=== PATIENT | male | born 1950 | race Caucasian/White ===

== ENCOUNTER → 2018-06-01 09:17 | Outpatient (CLI) | payer MEDICARE, SELFPAY ==
[2018-06-01 11:19] LABS: Add Manual Diff / Slide Review NO; Basophils Percent Auto 0.8 % (0-2); Eosinophils Percent Auto 4.1 % (2-4); Hematocrit 42.4 % (41-53); Lymphocytes Percent Auto 34.1 % (25-40); Mean Corpuscular HGB Conc 35.4 % (30-36); Mean Corpuscular Hemoglobin 32.3 PG (26-34); Mean Corpuscular Volume 91.1 fL (80-100); Monocytes Percent Auto 7.8 % (3-14); Neutrophils Absolute Auto 2800 /uL (3000-5900); Neutrophils Percent Auto 53.2 % (50-75); Platelet Count 177 X10^3/uL (150-400); Red Blood Cell Count 4.66 X10^6/uL (4.5-5.9); Red Cell Distribution Width 13.2 % (11.6-14.8); White Blood Cell Count 5.3 X10^3/uL (4.5-11.0)
[2018-06-01 11:30] LABS: Alanine Aminotransferase 27 IU/L (21-72); Albumin 4.4 g/dL (3.5-5.0); Albumin Globulin Ratio 1.5 (1.0-2.8); Alkaline Phosphatase 37 U/L (38-126); Aspartate Aminotransferase 26 IU/L (17-59); BUN Creatinine Ratio 17.9 (6-22); Blood Urea Nitrogen 25 mg/dL (9-20); Calcium 9.6 mg/dL (8.4-10.2); Carbon Dioxide 32 mmol/L (22-32); Chloride 102 mmol/L (98-107); Cholesterol 227 mg/dL (140-199); Estimated Glomerular Filt Rate 50.2 mL/min (>60); Glucose 96 mg/dL (80-110); HDL Cholesterol 59 mg/dL (40-60); HEMOLYSIS < 15 (0-50); LDL Cholesterol Calculated 144 mg/dL (<100); Potassium 3.7 mmol/L (3.4-5.1); Sodium 143 mmol/L (137-145); Total Protein 7.4 g/dL (6.3-8.2); Triglycerides 118 mg/dL (35-150)
[2018-06-01 11:53] LABS: Prostate Specific Antigen 0.746 ng/mL (0.10-4.00)
[2018-06-01 12:04] LABS: Vitamin D 25 Hydroxy (D3) 35.8 ng/mL (30.0-100.0)
[2018-06-01 12:11] LABS: Vitamin B12 475 pg/mL (239-931)
[2018-06-01 12:21] LABS: TSH w/ Reflex to FT4 0.73 uIU/mL (0.47-4.68)
== END ==
PROVIDERS: PCP Family Medicine; Visit Provider Family Medicine
DX: I10 Essential (primary) hypertension (principal); R53.82 Chronic fatigue, unspecified
CPT/HCPCS: 36415; 80053; 80061; 82306; 82607; 84153; 84403; 84443; 85025

== ENCOUNTER 2018-06-03 10:47 | Emergency (ER) | payer MEDICARE, SELFPAY ==
[2018-06-03 10:55] VITALS: BP 177/88; PULSE 67; RESP 15; TEMP 37; O2SAT 100; BMI 31.1
[2018-06-03 11:00] VITALS: BP 151/80; PULSE 59; RESP 13; O2SAT 100
--- NOTE | 2018-06-03 11:14 | DI.RAD.S_ITS ---
PROCEDURE: XR RIBS LT MIN 3V W CXR1V INDICATIONS: left rib pain TECHNIQUE: 2 views of the left ribs were acquired, along with a single view chest. COMPARISON: None. FINDINGS: Surgical changes and devices: Surgical clips project over the left upper quadrant of the abdomen.. Bones and chest wall: There is a radiopaque BB overlying the left lower lateral chest. Adjacent the BB-marker there is a possible minimally displaced fracture of the anterolateral left eighth rib. No suspicious bony lesions. Overlying soft tissues appear unremarkable. Lungs and pleura: No pleural effusions or pneumothorax. Lungs appear clear. Mediastinum: Mediastinal contours appear normal. Heart size is normal. IMPRESSION: Possible minimally displaced fracture of the anterolateral left eighth rib near the radiopaque BB marker at site of patient's indicated pain. Clinical correlation recommended. Dictated by: Christopher Broussard M.D. on 06/03/2018 at 12:19 Approved by: Christopher Broussadr M.D. on 06/03/2018 at 12:23
--- NOTE | 2018-06-03 11:21 | ED_ITS ---
HPI - Chest Pain General Chief Complaint: Chest Pain Stated Complaint: LEFT SIDED SHARP PAIN Time Seen by Provider: 06/03/18 11:00 Source: patient Mode of arrival: ambulatory Limitations: no limitations History of Present Illness HPI narrative: Patient is a 68-year-old male presents with left-sided chest pain. He said he has been point chest pain ongoing for 1 month. Last night it woke him from his sleep and he was not able to get comfortable. It sometimes hurts of when he takes a breath but not when he moved his arm. It is nonradiating. He does not remember falling or injuring it. He denies any shortness of breath or fever. He can pinpoint it MD complaint: chest pain Related Data Previous Rx's Medication Instructions Recorded fluticasone 1 spray INTRANASAL QDAY #1 bot 03/05/18 acyclovir 800 mg tablet 800 mg PO DAILY #90 tab 05/16/18 hydrochlorothiazide 25 mg tablet 25 mg PO QDAY #90 tab 05/16/18 lisinopril 20 mg tablet 20 mg PO QDAY #90 tab 05/16/18 omeprazole 40 mg capsule,delayed 40 mg PO QDAY #90 cap 05/16/18 release hydrocodone-acetaminophen [[place]] 1 tab PO Q4-6H PRN #10 tab 06/03/18 Allergies Allergy/AdvReac Type Severity Reaction Status Date / Time latex [LATEX] Allergy Mild Verified 05/16/18 14:46 iodine Allergy Unknown Verified 05/16/18 14:46 morphine Allergy Unknown Verified 05/16/18 14:46 shellfish derived Allergy Unknown Verified 05/16/18 14:46 Review of Systems Review of Systems GENERAL: Denies chills, fatigue, malaise, fever, sweats, travel HEENT: Denies sinus pain, ear pain, sore throat, difficulty swallowing, neck pain RESPIRATORY: Denies dyspnea, cough, wheezing, hemoptysis, sputum. CARDIOVASCULAR: See HPI GASTROINTESTINAL: Denies nausea, vomiting, abdominal pain, diarrhea, constipation, melena. : Denies dysuria, frequency, incontinence, hematuria, urinary retention, flank pain. MUSCULOSKELETAL: Denies weakness, joint pain, or bony pain SKIN: No rash, no erythema, no pruritus NEUROLOGIC: Denies weakness, dizziness, headache, numbness, change in speech, confusion PSYCHIATRIC: No concerning psychosocial issues. 12 point review of systems is negative except for those stated above and HPI PFSH Medical History Insomnia, persistent (Chronic) Obstructive sleep apnea of adult (Chronic) Snoring (Chronic) GERD (gastroesophageal reflux disease) (Chronic) Hypertension (Chronic) Surgical History History of Matthew fundoplication (Resolved) Social History Smoking Status: Unknown if ever smoked Exam Initial Vital Signs Initial Vital Signs: Vital Signs Temperature 98.6 F 06/03/18 10:55 Pulse Rate 67 06/03/18 10:55 Respiratory Rate 15 06/03/18 10:55 Blood Pressure 177/88 H 06/03/18 10:55 Pulse Oximetry 100 06/03/18 10:55 GENERAL: Well-appearing, well-nourished and in no acute distress. HEENT: Head atraumatic,EOMI, pupils reactive, face symmetric CARDIOVASCULAR: Regular rate and rhythm without murmurs, rubs or gallops. Patient is reproducible between ribs 7 and 8 anteriorly. Pinpoint. RESPIRATORY: Breath sounds equal bilaterally, no wheezes rales or rhonchi. ABDOMEN: Soft, nontender. Normoactive bowel sounds all 4 quadrants. No guarding or rebound. : No CVA tenderness EXTREMITIES: Normal range of motion, no clubbing or edema. Neurovascularly intact NEUROLOGICAL: Alert and oriented x4.Normal gait and speech. Cranial nerves II through XII grossly intact. SKIN: Warm, dry, no laceration, no petechiae, no rashes or lesions. Course Orders Ordered: ED Orders 06/03/18 10:56 EKG-12 Lead Urgent 06/03/18 11:14 XR ribs LT min 3V w CXR1V Stat 06/03/18 11:30 Complete Blood Count AUTO DIFF Stat Comprehensive Metabolic Panel Stat Lipase Stat Troponin & CK Cardiac Panel Stat Discontinued Medications Ketorolac Tromethamine (Toradol) 15 mg IV NOW ONE Stop: 06/03/18 11:15 Last Admin: 06/03/18 11:52 Dose: 15 mg Vital Signs - 8 hr 06/03/18 10:55 06/03/18 11:00 06/03/18 12:00 Temperature 98.6 F Pulse Rate 67 59 L 54 L Respiratory Rate 15 13 29 H Blood Pressure 177/88 H Blood Pressure [Left Arm] 151/80 H 145/81 H Pulse Oximetry 100 100 98 06/03/18 12:53 Temperature Pulse Rate 56 L Respiratory Rate 16 Blood Pressure 162/81 H Blood Pressure [Left Arm] Pulse Oximetry 99 MDM - Chest Pain Lab Data Attestation: I reviewed the patient's lab results. Result diagrams: 06/03/18 11:30 06/03/18 11:30 Lab Results 06/03/18 06/03/18 Range/Units 11:30 11:30 WBC 6.3 (4.5-11.0) X10^3/uL RBC 4.63 (4.5-5.9) X10^6/uL Hgb 14.7 (13.5-17.5) g/dL Hct 42.1 (41-53) % MCV 90.9 (80-100) fL MCH 31.8 (26-34) PG MCHC 35.0 (30-36) % RDW 13.0 (11.6-14.8) % Plt Count 180 (150-400) X10^3/uL Neut % (Auto) 54.3 (50-75) % Lymph % (Auto) 32.5 (25-40) % [place] % (Auto) 8.3 (3-14) % Eos % (Auto) 3.9 (2-4) % Baso % (Auto) 1.0 (0-2) % Neut # (Auto) 3400 (3385-5861) /uL Sodium 142 (137-145) mmol/L Potassium 3.7 (3.4-5.1) mmol/L Chloride 104 (98-107) mmol/L Carbon Dioxide 28 (22-32) mmol/L BUN 25 H (9-20) mg/dL Creatinine 1.20 (0.66-1.25) mg/dL Estimated GFR > 60.0 (>60) mL/min BUN/Creatinine Ratio 20.8 (6-22) Glucose 95 (80-110) mg/dL Calcium 9.6 (8.4-10.2) mg/dL Total Bilirubin 0.9 (0.2-1.3) mg/dL AST 22 (17-59) IU/L ALT 29 (21-72) IU/L Alkaline Phosphatase 38 (38-126) U/L Total Creatine Kinase 69 (55-170) U/L CK-MB (CK-2) TNP CK-MB (CK-2) Rel Index TNP Troponin I < 0.012 (0.01-0.034) ng/mL Total Protein 7.0 (6.3-8.2) g/dL Albumin 4.2 (3.5-5.0) g/dL Globulin 2.8 (1.7-4.1) g/dL Albumin/Globulin Ratio 1.5 (1.0-2.8) Lipase 57 (23-300) U/L Imaging Data rib XR left: Radiologist's impression: PROCEDURE: XR RIBS LT MIN 3V W CXR1V INDICATIONS: left rib pain TECHNIQUE: 2 views of the left ribs were acquired, along with a single view chest. COMPARISON: None. FINDINGS: Surgical changes and devices: Surgical clips project over the left upper quadrant of the abdomen.. Bones and chest wall: There is a radiopaque BB overlying the left lower lateral chest. Adjacent the BB-marker there is a possible minimally displaced fracture of the anterolateral left eighth rib. No suspicious bony lesions. Overlying soft tissues appear unremarkable. Lungs and pleura: No pleural effusions or pneumothorax. Lungs appear clear. Mediastinum: Mediastinal contours appear normal. Heart size is normal. IMPRESSION: Possible minimally displaced fracture of the anterolateral left eighth rib near the radiopaque BB marker at site of patient's indicated pain. Clinical correlation recommended. Dictated by: Christopher Broussard M.D. on 06/03/2018 at 12:19 ECG Data Attestation: I personally reviewed and interpreted this ECG as follows: Interpretation: Normal sinus rhythm rate [address] changes no T-wave inversions similar to previous EKG in 2015. MDM Narrative Medical decision making narrative: Blood work within normal limits on signs and symptoms consistent with rib fracture. At this time pain control only. Discharge Plan Departure Patient Disposition: Home Clinical Impression: Rib fracture Discharge Date/Time: 06/03/18 12:54 Interventions: ED Discharge Assessment Last Done: 06/03/18 12:53 Instructions: Rib Fracture Activity Restrictions/Additional Instructions: *You have been diagnosed with rib fracture *What to do: Blood work EKG and x-ray within normal limits *Continue to take medications as directed Recommend ibuprofen 600 mg every 6-8 hours if needed for pain or inflammation [place] 1 tablet every 4 hr or 2 tablets every 6 hr *Follow up with your primary care provider in 2-3 days *Return to ER if you should have increasing pain shortness of breath heart palpitations or any new, worsening or concerning symptoms CONTROLLED SUBSTANCE DISCHARGE (Narcotoic/benzodiazepine/Flexeril/Phenergan) 1. You have been prescribed narcotic medications, it does have acetaminophen/ Tylenol/paracetamol in it so do not take extra Tylenol or Tylenol containing products 2. Please understand that we cannot provide further refills of narcotics, benzodiazepines or controlled substances through the ED and her pain management will need to be through your provider. 3. While on these medications you cannot drive or operate heavy machinery. 4. You cannot sign legal documents or perform any duties such as this. 5. As long as you're taking opiate pain medications he should also be taking a stool softener such as Colace, Dulcolax, MiraLAX or prune juice, to help avoid constipation. Prescriptions: New hydrocodone-acetaminophen [[place]] 5-325 mg tablet 1 tab PO Q4-6H PRN (Reason: pain (scale score 4-6)) Qty: 10 RF: 0 No Action fluticasone 50 mcg/actuation spray,suspension 1 spray Intranasal QDAY Qty: 1 RF: 0 lisinopril 20 mg tablet 20 mg PO QDAY Qty: 90 RF: 3 hydrochlorothiazide 25 mg tablet 25 mg PO QDAY Qty: 90 RF: 3 acyclovir 800 mg tablet 800 mg PO DAILY Qty: 90 RF: 2 omeprazole 40 mg capsule,delayed release(DR/EC) 40 mg PO QDAY Qty: 90 RF: 3 Referrals: Micha Sanford MD [Primary Care Provider] -
[2018-06-03 11:50] LABS: Add Manual Diff / Slide Review NO; Eosinophils Percent Auto 3.9 % (2-4); Hematocrit 42.1 % (41-53); Hemoglobin 14.7 g/dL (13.5-17.5); Lymphocytes Percent Auto 32.5 % (25-40); Mean Corpuscular Hemoglobin 31.8 PG (26-34); Mean Corpuscular Volume 90.9 fL (80-100); Monocytes Percent Auto 8.3 % (3-14); Neutrophils Absolute Auto 3400 /uL (3000-5900); Neutrophils Percent Auto 54.3 % (50-75); Platelet Count 180 X10^3/uL (150-400); Red Blood Cell Count 4.63 X10^6/uL (4.5-5.9); White Blood Cell Count 6.3 X10^3/uL (4.5-11.0)
[2018-06-03] MEDS: KETOROLAC 60 MG/2 ML VIAL 15 MG IV (11:52)
[2018-06-03 12:00] VITALS: BP 145/81; PULSE 54; RESP 29; O2SAT 98
[2018-06-03 12:10] LABS: Alanine Aminotransferase 29 IU/L (21-72); Albumin 4.2 g/dL (3.5-5.0); Albumin Globulin Ratio 1.5 (1.0-2.8); Alkaline Phosphatase 38 U/L (38-126); Aspartate Aminotransferase 22 IU/L (17-59); BUN Creatinine Ratio 20.8 (6-22); Bilirubin Total 0.9 mg/dL (0.2-1.3); Blood Urea Nitrogen 25 mg/dL (9-20); Calcium 9.6 mg/dL (8.4-10.2); Carbon Dioxide 28 mmol/L (22-32); Chloride 104 mmol/L (98-107); Creatine Kinase 69 U/L (55-170); Estimated Glomerular Filt Rate > 60.0 mL/min (>60); Globulin 2.8 g/dL (1.7-4.1); Glucose 95 mg/dL (80-110); HEMOLYSIS < 15 (0-50); Lipase 57 U/L (23-300); Potassium 3.7 mmol/L (3.4-5.1); Sodium 142 mmol/L (137-145)
[2018-06-03 12:22] LABS: Troponin I < 0.012 ng/mL (0.01-0.034)
[2018-06-03 12:53] VITALS: BP 162/81; PULSE 56; RESP 16; O2SAT 99
== END 2018-06-03 12:54 | disposition home or self-care (01) ==
PROVIDERS: Emergency Provider Emergency Medicine; PCP Family Medicine
DX: S22.32XA Fracture of one rib, left side, initial encounter for closed fracture (principal)
CPT/HCPCS: 36591; 71101; 80053; 82550; 83690; 84484; 85025; 93005; 93041; 96374; 99283; 99285; J1885

== ENCOUNTER 2019-02-08 13:00 | Emergency (ER) | payer OTHER, MEDICARE, SELFPAY ==
[2019-02-08 13:05] VITALS: BP 198/95; PULSE 67; RESP 18; TEMP 36.6; O2SAT 99; BMI 27.8
--- NOTE | 2019-02-08 13:21 | DI.RAD.S_ITS ---
PROCEDURE: XR KNEE LT 3V INDICATIONS: knee pain TECHNIQUE: 3 views of the knee were acquired. COMPARISON: None. FINDINGS: Bones: No fractures or dislocations. No suspicious bony lesions. Mild tricompartmental periarticular osteophyte formation. Soft tissues: No joint effusion. No suspicious soft tissue calcifications. IMPRESSION: Osteoarthritis. No acute fracture. No osseous lesion. If symptoms and/or clinical suspicion for pathology persist, further assessment with repeat, or advanced imaging (e.g., CT, MRI, or bone scan) may be helpful for further assessment. Dictated by: Sarah Ortiz M.D. on 02/08/2019 at 13:41 Approved by: Sarah Ortiz M.D. on 02/08/2019 at 13:42
--- NOTE | 2019-02-08 14:35 | ED.LOWEXIN ---
HPI - Extremity Injury (Lower) <JUDY Saleh - Last Filed: 02/08/19 14:41> General Chief Complaint: Extremity Injury, Lower Stated Complaint: Slipped and Hurt Left Knee Time Seen by Provider: 02/08/19 13:16 Source: patient Mode of arrival: ambulatory Limitations: no limitations History of Present Illness HPI Narrative: The patient is a 68-year-old male nonsmoker with history PE who presents with a chief complaint of left knee pain. He states he was jogging inhaler yesterday and felt his left knee twist in. He states he has an injury to that knee when he was playing football as a teenager, but is not sure what it was. He has not taken any Tylenol or ibuprofen. He did not feel a pop or here crack. He did not fall. States his knee feels unstable. His pain is ?on the inside of the knee. He denies any other injury. Related Data Previous Rx's Medication Instructions Recorded acyclovir 800 mg tablet 800 mg PO DAILY #90 tab 05/16/18 hydrochlorothiazide 25 mg tablet 25 mg PO QDAY #90 tab 05/16/18 omeprazole 40 mg capsule,delayed 40 mg PO QDAY #90 cap 05/16/18 release hydrocodone-acetaminophen [[place]] 1 tab PO Q4-6H PRN #10 tab 06/03/18 buspirone 10 mg tablet 10 mg PO .hs #30 tab 06/19/18 lisinopril 20 mg tablet 20 mg PO QDAY #90 tab 07/02/18 fluticasone propionate 1 spray INTRANASAL QDAY #1 bot 08/07/18 Allergies Allergy/AdvReac Type Severity Reaction Status Date / Time latex [LATEX] Allergy Mild Verified 06/19/18 09:42 iodine Allergy Unknown Verified 06/19/18 09:42 morphine Allergy Unknown Verified 06/19/18 09:42 shellfish derived Allergy Unknown Verified 06/19/18 09:42 Review of Systems <JUDY Saleh - Last Filed: 02/08/19 14:41> Review of Systems GENERAL: Denies chills, fatigue, malaise, fever, sweats. HEENT: Denies sinus pain, ear pain, sore throat, difficulty swallowing, dizziness. RESPIRATORY: Denies dyspnea, cough, wheezing, hemoptysis, sputum. CARDIOVASCULAR: Denies chest pain, palpitations, orthopnea, edema, GASTROINTESTINAL: Denies nausea, vomiting, abdominal pain, diarrhea, constipation, melena. : Denies dysuria, frequency, incontinence, hematuria, urinary retention. MUSCULOSKELETAL: See HPI SKIN: Denies rash, skin lesions, or other NEUROLOGIC: Denies weakness, headache, numbness, change in speech, confusion, seizures, incoordination. PSYCHIATRIC: No concerning psychosocial issues. 12 point review of systems is negative except for those stated above PFSH <JUDY Saleh - Last Filed: 02/08/19 14:41> Medical History Insomnia, persistent (Chronic) Obstructive sleep apnea of adult (Chronic) Snoring (Chronic) GERD (gastroesophageal reflux disease) (Chronic) Hypertension (Chronic) Social History marital status: Smoking Status: Never smoker alcohol intake: current (ON OCCASION ) substance use type: does not use Exam <JUDY Saleh - Last Filed: 02/08/19 14:41> Narrative Exam Narrative: GENERAL: This is a well-nourished, well-developed patient, in mild distress. HEAD: Atraumatic. Normocephalic. No temporal or scalp tenderness. EYES: Pupils equal round and reactive. Extraocular motions intact. No scleral icterus. No injection or drainage. NECK: Trachea midline. No JVD or lymphadenopathy. Supple, nontender, no meningeal signs. CARDIOVASCULAR: Regular rate and rhythm RESPIRATORY: No cough. No increased respiratory effort. No accessory muscle use. EXTREMITIES: Generalized pain to palpation left knee. Positive left pedal pulse. Negative anterior drawer, posterior drawer, varus and valgus. Negative Livan test. BACK: Nontender without deformity or crepitance. No flank tenderness. NEURO: AOx3. SKIN: No rash erythema ecchymosis laceration or abrasion noted left knee. Initial Vital Signs Initial Vital Signs: Vital Signs Temperature 97.9 F 02/08/19 13:05 Pulse Rate 67 02/08/19 13:05 Respiratory Rate 18 02/08/19 13:05 Blood Pressure 198/95 H 02/08/19 13:05 Pulse Oximetry 99 02/08/19 13:05 <David Luciano DO - Last Filed: 02/08/19 16:55> Initial Vital Signs Initial Vital Signs: Vital Signs Temperature 97.9 F 02/08/19 13:05 Pulse Rate 67 02/08/19 13:05 Respiratory Rate 18 02/08/19 13:05 Blood Pressure 198/95 H 02/08/19 13:05 Pulse Oximetry 99 02/08/19 13:05 Course <JUDY Saleh - Last Filed: 02/08/19 14:41> Orders Ordered: ED Orders 02/08/19 13:21 XR knee LT 3V Stat Vital Signs - 8 hr 02/08/19 13:05 02/08/19 14:51 Temperature 97.9 F Pulse Rate 67 67 Respiratory Rate 18 16 Blood Pressure 198/95 H 174/107 H Pulse Oximetry 99 98 <David Luciano DO - Last Filed: 02/08/19 16:55> Orders Ordered: ED Orders 02/08/19 13:21 XR knee LT 3V Stat Vital Signs - 8 hr 02/08/19 13:05 02/08/19 14:51 Temperature 97.9 F Pulse Rate 67 67 Respiratory Rate 18 16 Blood Pressure 198/95 H 174/107 H Pulse Oximetry 99 98 MDM - Extremity Injury (Lower) <JUDY Saleh - Last Filed: 02/08/19 14:41> Imaging Data knee xray : Radiologist's impression: [address] [address] XRay Report Signed Patient: Justin Guidry FMR#: [id number] : 9Acct:[id number] Age/Sex: 68 / MDate of Service: 02/08/19 Loc: ED Accession Number: [id number] Procedure: XR knee LT 3V Ordering Provider: Marie Guillen PROCEDURE: XR KNEE LT 3V INDICATIONS: knee pain TECHNIQUE: 3 views of the knee were acquired. COMPARISON: None. FINDINGS: Bones: No fractures or dislocations. No suspicious bony lesions. Mild tricompartmental periarticular osteophyte formation. Soft tissues: No joint effusion. No suspicious soft tissue calcifications. IMPRESSION: Osteoarthritis. No acute fracture. No osseous lesion. If symptoms and/or clinical suspicion for pathology persist, further assessment with repeat, or advanced imaging (e.g., CT, MRI, or bone scan) may be helpful for further assessment. Dictated by: Sarah Ortiz M.D. on 02/08/2019 at 13:41 Approved by: Sarah Ortiz M.D. on 02/08/2019 at 13:42 [facility] Narrative Medical decision making narrative: The patient is a 68-year-old male who presents with a chief complaint of left knee pain after twisting his knee. He has negative x-rays. I offered to Miki wrap his knee offered pain medications in the emergency department. He declined all the above. He states he would rather just take Tylenol and states he would by so knee brace. I discussed at length rest ice compression elevation as well as [id number] pain medications as needed and able. Encouraged follow-up with primary care provider especially if no improvement in the next 7-10 days. Discussed coming back to the emergency department for any acute concerns. No questions or concerns upon discharge. Discharge Plan Departure Patient Disposition: Home Clinical Impression: Acute pain of left knee Discharge Date/Time: 02/08/19 14:52 Interventions: ED Discharge Assessment Last Done: 02/08/19 14:51 Instructions: DI for Knee Sprain, How To Perform RICE (Rest, Ice, Compress, Elevate), DI for Knee Pain Activity Restrictions/Additional Instructions: Your knee x-ray came back with no fracture today.. Please use rest ice compression elevation as well as [id number] pain medications as needed. And able. Please follow up with primary care provider if no improvement or worsening in the next 7-10 days.. Please come back to the emergency department for any acute concerns such as chest pain, shortness of breath etc Prescriptions: No Action lisinopril 20 mg tablet 20 mg PO QDAY Qty: 90 RF: 3 fluticasone propionate 50 mcg/actuation spray,suspension 1 spray Intranasal QDAY Qty: 1 RF: 5 hydrochlorothiazide 25 mg tablet 25 mg PO QDAY Qty: 90 RF: 3 acyclovir 800 mg tablet 800 mg PO DAILY Qty: 90 RF: 2 omeprazole 40 mg capsule,delayed release(DR/EC) 40 mg PO QDAY Qty: 90 RF: 3 buspirone 10 mg tablet 10 mg PO .hs Qty: 30 RF: 1 hydrocodone-acetaminophen [[place]] 5-325 mg tablet 1 tab PO Q4-6H PRN (Reason: pain (scale score 4-6)) Qty: 10 RF: 0 Referrals: Micha Sanford MD [Primary Care Provider] - <David Luciano DO - Last Filed: 02/08/19 16:55> Cosign ED Attending Bubbaature Attestation: I was immediately available in the department for consultation. Documentation has been reviewed. I agree with assessment and plan.
--- NOTE | 2019-02-08 14:38 | ED_ITS ---
HPI - Extremity Injury (Lower) <JUDY Saleh - Last Filed: 02/08/19 14:41> General Chief Complaint: Extremity Injury, Lower Stated Complaint: Slipped and Hurt Left Knee Time Seen by Provider: 02/08/19 13:16 Source: patient Mode of arrival: ambulatory Limitations: no limitations History of Present Illness HPI Narrative: The patient is a 68-year-old male nonsmoker with history PE who presents with a chief complaint of left knee pain. He states he was jogging inhaler yesterday and felt his left knee twist in. He states he has an injury to that knee when he was playing football as a teenager, but is not sure what it was. He has not taken any Tylenol or ibuprofen. He did not feel a pop or here crack. He did not fall. States his knee feels unstable. His pain is ?on the inside of the knee. He denies any other injury. Related Data Previous Rx's Medication Instructions Recorded acyclovir 800 mg tablet 800 mg PO DAILY #90 tab 05/16/18 hydrochlorothiazide 25 mg tablet 25 mg PO QDAY #90 tab 05/16/18 omeprazole 40 mg capsule,delayed 40 mg PO QDAY #90 cap 05/16/18 release hydrocodone-acetaminophen [[place]] 1 tab PO Q4-6H PRN #10 tab 06/03/18 buspirone 10 mg tablet 10 mg PO .hs #30 tab 06/19/18 lisinopril 20 mg tablet 20 mg PO QDAY #90 tab 07/02/18 fluticasone propionate 1 spray INTRANASAL QDAY #1 bot 08/07/18 Allergies Allergy/AdvReac Type Severity Reaction Status Date / Time latex [LATEX] Allergy Mild Verified 06/19/18 09:42 iodine Allergy Unknown Verified 06/19/18 09:42 morphine Allergy Unknown Verified 06/19/18 09:42 shellfish derived Allergy Unknown Verified 06/19/18 09:42 Review of Systems <JUDY Saleh - Last Filed: 02/08/19 14:41> Review of Systems GENERAL: Denies chills, fatigue, malaise, fever, sweats. HEENT: Denies sinus pain, ear pain, sore throat, difficulty swallowing, dizziness. RESPIRATORY: Denies dyspnea, cough, wheezing, hemoptysis, sputum. CARDIOVASCULAR: Denies chest pain, palpitations, orthopnea, edema, GASTROINTESTINAL: Denies nausea, vomiting, abdominal pain, diarrhea, constipation, melena. : Denies dysuria, frequency, incontinence, hematuria, urinary retention. MUSCULOSKELETAL: See HPI SKIN: Denies rash, skin lesions, or other NEUROLOGIC: Denies weakness, headache, numbness, change in speech, confusion, seizures, incoordination. PSYCHIATRIC: No concerning psychosocial issues. 12 point review of systems is negative except for those stated above PFSH <JUDY Saleh - Last Filed: 02/08/19 14:41> Medical History Insomnia, persistent (Chronic) Obstructive sleep apnea of adult (Chronic) Snoring (Chronic) GERD (gastroesophageal reflux disease) (Chronic) Hypertension (Chronic) Social History marital status: Smoking Status: Never smoker alcohol intake: current (ON OCCASION ) substance use type: does not use Exam <JUDY Saleh - Last Filed: 02/08/19 14:41> Narrative Exam Narrative: GENERAL: This is a well-nourished, well-developed patient, in mild distress. HEAD: Atraumatic. Normocephalic. No temporal or scalp tenderness. EYES: Pupils equal round and reactive. Extraocular motions intact. No scleral icterus. No injection or drainage. NECK: Trachea midline. No JVD or lymphadenopathy. Supple, nontender, no meningeal signs. CARDIOVASCULAR: Regular rate and rhythm RESPIRATORY: No cough. No increased respiratory effort. No accessory muscle use. EXTREMITIES: Generalized pain to palpation left knee. Positive left pedal pulse. Negative anterior drawer, posterior drawer, varus and valgus. Negative Livan test. BACK: Nontender without deformity or crepitance. No flank tenderness. NEURO: AOx3. SKIN: No rash erythema ecchymosis laceration or abrasion noted left knee. Initial Vital Signs Initial Vital Signs: Vital Signs Temperature 97.9 F 02/08/19 13:05 Pulse Rate 67 02/08/19 13:05 Respiratory Rate 18 02/08/19 13:05 Blood Pressure 198/95 H 02/08/19 13:05 Pulse Oximetry 99 02/08/19 13:05 <David Luciano DO - Last Filed: 02/08/19 16:55> Initial Vital Signs Initial Vital Signs: Vital Signs Temperature 97.9 F 02/08/19 13:05 Pulse Rate 67 02/08/19 13:05 Respiratory Rate 18 02/08/19 13:05 Blood Pressure 198/95 H 02/08/19 13:05 Pulse Oximetry 99 02/08/19 13:05 Course <JUDY Saleh - Last Filed: 02/08/19 14:41> Orders Ordered: ED Orders 02/08/19 13:21 XR knee LT 3V Stat Vital Signs - 8 hr 02/08/19 13:05 02/08/19 14:51 Temperature 97.9 F Pulse Rate 67 67 Respiratory Rate 18 16 Blood Pressure 198/95 H 174/107 H Pulse Oximetry 99 98 <David Luciano DO - Last Filed: 02/08/19 16:55> Orders Ordered: ED Orders 02/08/19 13:21 XR knee LT 3V Stat Vital Signs - 8 hr 02/08/19 13:05 02/08/19 14:51 Temperature 97.9 F Pulse Rate 67 67 Respiratory Rate 18 16 Blood Pressure 198/95 H 174/107 H Pulse Oximetry 99 98 MDM - Extremity Injury (Lower) <JUDY Saleh - Last Filed: 02/08/19 14:41> Imaging Data knee xray : Radiologist's impression: [address] [address] XRay Report Signed Patient: Justin Guidry FMR#: [id number] : 9Acct:[id number] Age/Sex: 68 / MDate of Service: 02/08/19 Loc: ED Accession Number: [id number] Procedure: XR knee LT 3V Ordering Provider: Marie Guillen PROCEDURE: XR KNEE LT 3V INDICATIONS: knee pain TECHNIQUE: 3 views of the knee were acquired. COMPARISON: None. FINDINGS: Bones: No fractures or dislocations. No suspicious bony lesions. Mild tricompartmental periarticular osteophyte formation. Soft tissues: No joint effusion. No suspicious soft tissue calcifications. IMPRESSION: Osteoarthritis. No acute fracture. No osseous lesion. If symptoms and/or clinical suspicion for pathology persist, further assessment with repeat, or advanced imaging (e.g., CT, MRI, or bone scan) may be helpful for further assessment. Dictated by: Sarah Ortiz M.D. on 02/08/2019 at 13:41 Approved by: Sarah Ortiz M.D. on 02/08/2019 at 13:42 [facility] Narrative Medical decision making narrative: The patient is a 68-year-old male who presents with a chief complaint of left knee pain after twisting his knee. He has negative x-rays. I offered to Miki wrap his knee offered pain medications in the emergency department. He declined all the above. He states he would rather just take Tylenol and states he would by so knee brace. I discussed at length rest ice compression elevation as well as [id number] pain medications as needed and able. Encouraged follow-up with primary care provider especially if no improvement in the next 7-10 days. Discussed coming back to the emergency department for any acute concerns. No questions or concerns upon discharge. Discharge Plan Departure Patient Disposition: Home Clinical Impression: Acute pain of left knee Discharge Date/Time: 02/08/19 14:52 Interventions: ED Discharge Assessment Last Done: 02/08/19 14:51 Instructions: DI for Knee Sprain, How To Perform RICE (Rest, Ice, Compress, Elevate), DI for Knee Pain Activity Restrictions/Additional Instructions: Your knee x-ray came back with no fracture today.. Please use rest ice compression elevation as well as [id number] pain medications as needed. And able. Please follow up with primary care provider if no improvement or worsening in the next 7-10 days.. Please come back to the emergency department for any acute concerns such as chest pain, shortness of breath etc Prescriptions: No Action lisinopril 20 mg tablet 20 mg PO QDAY Qty: 90 RF: 3 fluticasone propionate 50 mcg/actuation spray,suspension 1 spray Intranasal QDAY Qty: 1 RF: 5 hydrochlorothiazide 25 mg tablet 25 mg PO QDAY Qty: 90 RF: 3 acyclovir 800 mg tablet 800 mg PO DAILY Qty: 90 RF: 2 omeprazole 40 mg capsule,delayed release(DR/EC) 40 mg PO QDAY Qty: 90 RF: 3 buspirone 10 mg tablet 10 mg PO .hs Qty: 30 RF: 1 hydrocodone-acetaminophen [[place]] 5-325 mg tablet 1 tab PO Q4-6H PRN (Reason: pain (scale score 4-6)) Qty: 10 RF: 0 Referrals: Micha Sanford MD [Primary Care Provider] - <David Luciano DO - Last Filed: 02/08/19 16:55> Cosign ED Attending Bubbaature Attestation: I was immediately available in the department for consultation. Documentation has been reviewed. I agree with assessment and plan.
[2019-02-08 14:51] VITALS: BP 174/107; PULSE 67; RESP 16; O2SAT 98
== END 2019-02-08 14:52 | disposition home or self-care (01) ==
PROVIDERS: Emergency Provider Nurse Practitioner Family; PCP Family Medicine
DX: M25.562 Pain in left knee (principal); W01.0XXA Fall on same level from slipping, tripping and stumbling without subsequent striking against object, initial encounter
CPT/HCPCS: 73562; 99282; 99283

== ENCOUNTER → 2019-04-29 07:54 | Outpatient (CLI) | payer OTHER, MEDICARE, SELFPAY ==
[2019-04-29 08:31] LABS: Add Manual Diff / Slide Review NO; Basophils Absolute Auto 0 /uL (0-100); Basophils Percent Auto 0.7 % (0-2); Eosinophils Absolute Auto 200 /uL (0-450); Hematocrit 41.6 % (41-53); Hemoglobin 14.3 g/dL (13.5-17.5); Lymphocytes Absolute Auto 1800 /uL (1100-4500); Lymphocytes Percent Auto 36.6 % (25-40); Mean Corpuscular HGB Conc 34.5 % (30-36); Mean Corpuscular Hemoglobin 30.3 PG (26-34); Mean Corpuscular Volume 87.9 fL (80-100); Monocytes Absolute Auto 400 /uL (0-900); Monocytes Percent Auto 7.7 % (3-14); Neutrophils Absolute Auto 2500 /uL (1500-7000); Platelet Count 191 X10^3/uL (150-400); Red Blood Cell Count 4.74 X10^6/uL (4.5-5.9); Red Cell Distribution Width 16.2 % (11.6-14.8); White Blood Cell Count 4.9 X10^3/uL (4.5-11.0)
[2019-04-29 09:32] LABS: Alanine Aminotransferase 30 IU/L (21-72); Albumin 3.1 g/dL (3.5-5.0); Alkaline Phosphatase 39 U/L (38-126); Aspartate Aminotransferase 31 IU/L (17-59); BUN Creatinine Ratio 25.8 (6-22); Bilirubin Total 0.4 mg/dL (0.2-1.3); Blood Urea Nitrogen 31 mg/dL (9-20); Calcium 9.4 mg/dL (8.4-10.2); Carbon Dioxide 31 mmol/L (22-32); Chloride 103 mmol/L (98-107); Estimated Glomerular Filt Rate 59.9 mL/min (>60); Globulin 3.2 g/dL (1.7-4.1); Glucose 92 mg/dL (80-110); HDL Cholesterol 76 mg/dL (40-60); HEMOLYSIS < 15 (0-50); Potassium 4.4 mmol/L (3.4-5.1); Sodium 136 mmol/L (137-145); Total Protein 6.3 g/dL (6.3-8.2); Triglycerides 250 mg/dL (35-150)
[2019-04-29 09:38] LABS: LDL Cholesterol Calculated 456 mg/dL (<100)
[2019-04-29 09:39] LABS: Cholesterol 582 mg/dL (140-199)
[2019-04-29 10:02] LABS: Prostate Specific Antigen Scrn 0.784 ng/mL (0.1-4.0)
[2019-04-29 10:05] LABS: Thyroid Stimulating Hormone 1.77 uIU/mL (0.47-4.68)
== END ==
PROVIDERS: PCP Family Medicine; Visit Provider Family Medicine
DX: I10 Essential (primary) hypertension (principal); I26.99 Other pulmonary embolism without acute cor pulmonale; R53.83 Other fatigue; Z13.220 Encounter for screening for lipoid disorders; Z13.29 Encounter for screening for other suspected endocrine disorder; Z13.6 Encounter for screening for cardiovascular disorders
CPT/HCPCS: 36415; 80053; 80061; 84443; 85025; G0103

== ENCOUNTER → 2019-06-17 06:41 | Outpatient (CLI) | payer OTHER, MEDICARE, SELFPAY ==
--- NOTE | 2019-06-17 | DI.ECHO.S_ITS ---
[facility]---------+ [facility] +---------+ : : [address] : [place] : : : : [id number] : : : : Phone: [phone]+ Echocardiogram Report + + :Name: JH CHENEY Study Date: 06/17/2019 Height: 72 in : :[facility] Weight: 180 lb : : Gender: Male BSA: 2.0 m2 : :: 1950 Age: 69 yrs BP: 156/80 mmHg: :Reason For Study: Pulmonary- Embolism : :Ordering Physician: Francesca : :[place] Gama Performed By: Varsha Sandy : :Referring: Dr. Micha Sanford : + + Interpretation Summary 1) Normal left ventricular thickness, size, wall motion, and systolic function (EF 60-65%). 2) Normal right ventricular size and function. 3) The left atrium is severely dilated. 4) No significant valvular abnormalities. 5) The right ventricular systolic pressure is estimated to be at least 34 mmHg based on an estimated right atrial pressure of 8 mm Hg. 6) Hypertension present during the study (BP 156/80mmHg). 7) No prior Echo available for comparison. Procedure: A two-dimensional transthoracic echocardiogram with color flow and Doppler was performed. The study quality was technically adequate. There is no prior echocardiogram noted for this patient. The patient was in normal sinus rhythm during the exam. Left Ventricle: The left ventricle is normal in size, wall thickness, and systolic function without any focal wall motion abnormalities. The ejection fraction is estimated to be 60-65%. Diastolic parameters suggest a relaxation abnormality of the left ventricle, consistent with probable normal filling pressures. Right Ventricle: The right ventricle is normal size. The right ventricular systolic function is normal. Atria: The left atrium is severely dilated. Right atrial size is normal. The interatrial septum is intact with no evidence for an atrial septal defect. Mitral Valve: The mitral valve is normal in structure and function. There is no mitral regurgitation noted. Aortic Valve: The aortic valve opens well. There is no aortic valve stenosis. No aortic regurgitation is present. Tricuspid Valve: The tricuspid valve is normal in structure and function. There is a trace or physiologic amount of tricuspid regurgitation. The right ventricular systolic pressure is estimated to be at least 34 mmHg based on an estimated right atrial pressure of 8 mm Hg. Pulmonic Valve: The pulmonic valve is not well visualized. There is no pulmonic valvular regurgitation. Great Vessels: The aortic root is normal size. The dimensions of the ascending aorta are normal. The ascending aorta is normal in size. The aortic arch is at the upper limits of normal in size. The IVC is dilated (diameter is greater than 2.1 cm) yet it collapses greater than 50% with a sniff. This suggests a right atrial pressure of 8 mm Hg. Pericardium/ Pleura There is no pericardial effusion. There has been no significant change since the previous study. MMode/2D Measurements & Calculations LVIDd: 4.7 cm Ao root diam: 3.4 cm LVIDs: 2.8 cm Aortic Jxn: 2.8 cm FS: 41.0 % asc Aorta Diam: 3.2 cm IVSd: 0.88 cm Ao Arch Diam (Prox Trans): 3.2 cm LVPWd: 1.1 cm LV edwards. diameter/BSA (cm/m^2): 2.3 LV sys. diameter/BSA (cm/m^2): 1.4 LA dimension: 4.3 cm RA long axis: 5.6 cm LA A2 area: 29.6 cm2 RA area: 21.2 cm2 LA A4 area: 25.2 cm2 RA vol: 67.7 ml LA length (vol): 5.7 cm RA : 33.2 ml/m2 LA vol: 110.8 ml IVC diam: 2.5 cm LA vol index: 54.4 ml/m2 RVDd major: 6.1 cm RVD1 (basal): 4.5 cm RVD2 (mid): 3.4 cm Doppler Measurements & Calculations Ao V2 max: 142.0 cm/sec MV E max jose antonio: 88.2 cm/sec Ao V2 mean: 98.3 cm/sec MV A max jose antonio: 69.1 cm/sec Ao max P.1 mmHg MV E/A: 1.3 Ao mean P.4 mmHg Med Peak E' Jose Antonio: 8.1 cm/sec Ao V2 VTI: 36.0 cm E/E' med: 10.9 Lat Peak E' Jose Antonio: 10.3 cm/sec E/E' lat: 8.5 E/e' average: 9.7 MV dec time: 0.17 sec MV P1/2t: 50.8 msec TR max jose antonio: 256.1 cm/sec MV P1/2t max jose antonio: 88.4 cm/sec TR max P.2 mmHg MVA(P1/2t): 4.3 cm2 PA V2 max: 90.0 cm/sec PA V2 mean: 64.3 cm/sec PA mean P.9 mmHg PA Accel Time: 0.18 sec Reading Physician:08:48 AM
== END ==
PROVIDERS: PCP Family Medicine; Visit Provider Internal Medicine Cardiovascular Disease
DX: Z09 Encounter for follow-up examination after completed treatment for conditions other than malignant neoplasm (principal); Z86.711 Personal history of pulmonary embolism
CPT/HCPCS: 93306

== ENCOUNTER → 2019-06-17 07:43 | Outpatient (CLI) | payer OTHER, MEDICARE, SELFPAY ==
[2019-06-17 08:49] LABS: Cholesterol 226 mg/dL (140-199); HDL Cholesterol 82 mg/dL (40-60); LDL Cholesterol Calculated 123 mg/dL (<100); Triglycerides 104 mg/dL (35-150)
== END ==
PROVIDERS: PCP Family Medicine; Visit Provider Family Medicine
DX: E78.5 Hyperlipidemia, unspecified (principal)
CPT/HCPCS: 36415; 80061

== ENCOUNTER → 2020-03-03 11:07 | Outpatient (CLI) | payer OTHER, MEDICARE, SELFPAY ==
[2020-03-05 04:08] LABS: COVID19 Sendout Not Detected (Not Detected)
== END ==
PROVIDERS: PCP Family Medicine; Visit Provider Physician Assistant
DX: R11.10 Vomiting, unspecified (principal); R52 Pain, unspecified
CPT/HCPCS: 87635

== ENCOUNTER → 2020-05-18 14:04 | Outpatient (CLI) | payer OTHER, MEDICARE, SELFPAY ==
--- NOTE | 2020-05-18 14:07 | DI.US.S_ITS ---
PROCEDURE: US PERIPH VENOUS LOW EXTREM LT INDICATIONS: LLE SWELLING AND PAIN. TECHNIQUE: Real-time imaging, as well as color and pulse Doppler interrogation, were performed of the lower extremity deep veins from the inguinal ligament to the popliteal fossa. COMPARISON: None. FINDINGS: The common femoral, femoral and popliteal veins are normally compressible, and free of intraluminal thrombus. Color and pulse Doppler demonstrate normal phasic intraluminal flow. There is normal augmentation response to distal compression maneuver. IMPRESSION: Negative for deep venous thrombosis. Dictated by: Brown Cornelius M.D. on 05/18/2020 at 15:17 Approved by: Brown Cornelius M.D. on 05/18/2020 at 15:17
== END ==
PROVIDERS: PCP Family Medicine; Referring Provider Family Medicine; Visit Provider Family Medicine
DX: R22.42 Localized swelling, mass and lump, left lower limb (principal); M79.662 Pain in left lower leg; S89.90XA Unspecified injury of unspecified lower leg, initial encounter; Z86.718 Personal history of other venous thrombosis and embolism
CPT/HCPCS: 93971

== ENCOUNTER 2021-02-12 09:07 | Emergency (ER) | payer OTHER, MEDICARE, SELFPAY ==
[2021-02-12] VITALS (7 sets, daily range): BP systolic 161–170; BP diastolic 79–87; PULSE 49–63; RESP 12–21; TEMP 36.6; O2SAT 97–99; BMI 30.5
--- NOTE | 2021-02-12 09:28 | DI.RAD.S_ITS ---
PROCEDURE: XR CHEST 1V INDICATIONS: left sided chest pain TECHNIQUE: One view of the chest was acquired. COMPARISON: [facility], , CHEST 1 VIEW, 02/14/2015, 12:48. FINDINGS: Surgical changes and devices: None. Lungs and pleura: Lungs are clear. No pleural effusions or pneumothorax. Mediastinum: Mediastinal contours appear normal. Heart size is normal. Bones and chest wall: No suspicious bony lesions. Overlying soft tissues appear unremarkable. IMPRESSION: Normal for age, source of current left-sided chest pain symptoms is not seen. Dictated by: Francisco Javed M.D. on 02/12/2021 at 10:06 Approved by: Francisco Javed M.D. on 02/12/2021 at 10:07
[2021-02-12 09:39] LABS: Add Manual Diff / Slide Review NO; Basophils Absolute Auto 0 /uL (0-100); Basophils Percent Auto 0.6 % (0-2); Eosinophils Absolute Auto 300 /uL (0-450); Eosinophils Percent Auto 3.7 % (2-4); Hematocrit 43.8 % (41-53); Lymphocytes Absolute Auto 2400 /uL (1100-4500); Mean Corpuscular HGB Conc 34.4 % (30-36); Mean Corpuscular Hemoglobin 31.1 PG (26-34); Mean Corpuscular Volume 90.5 fL (80-100); Monocytes Absolute Auto 600 /uL (0-900); Neutrophils Absolute Auto 4600 /uL (1500-7000); Neutrophils Percent Auto 58.7 % (50-75); Platelet Count 219 X10^3/uL (150-400); Red Blood Cell Count 4.84 X10^6/uL (4.5-5.9); Red Cell Distribution Width 13.2 % (11.6-14.8); White Blood Cell Count 7.9 X10^3/uL (4.5-11.0)
[2021-02-12 09:43] LABS: Alanine Aminotransferase 20 IU/L (<50); Albumin 4.5 g/dL (3.5-5.0); Albumin Globulin Ratio 1.4 (1.0-2.8); Alkaline Phosphatase 36 U/L (38-126); Aspartate Aminotransferase 27 IU/L (17-59); BUN Creatinine Ratio 21.9 (6-22); Bilirubin Total 0.8 mg/dL (0.2-1.3); Blood Urea Nitrogen 34 mg/dL (9-20); Calcium 9.8 mg/dL (8.4-10.2); Carbon Dioxide 29 mmol/L (22-32); Chloride 104 mmol/L (98-107); Creatine Kinase 46 U/L (55-170); Estimated Glomerular Filt Rate 44.4 mL/min (>60); Globulin 3.3 g/dL (1.7-4.1); Glucose 101 mg/dL (80-110); HEMOLYSIS < 15 (0-50); Lipase 85 U/L (23-300); Potassium 3.9 mmol/L (3.4-5.1); Sodium 138 mmol/L (137-145); Total Protein 7.8 g/dL (6.3-8.2)
[2021-02-12 09:44] LABS: D Dimer < 200 ng/mL (<230)
--- NOTE | 2021-02-12 09:44 | ED_ITS ---
HPI - Chest Pain General Chief Complaint: Chest Pain Stated Complaint: POSS PULMONARY EMBOLISM Time Seen by Provider: 02/12/21 09:14 Source: patient Mode of arrival: Ambulatory Limitations: no limitations History of Present Illness HPI narrative: Patient is a 70-year-old man with history of pulmonary embolism on Xarelto, hypertension presenting with left-sided chest pain. He says he went on a long car ride to [place] last week he has since been having increasing left- sided chest pain and shortness of breath but only on the left side for the last 10 days. Nothing makes the pain or breathing better or worse. It is fairly constant in nature. It does not seem to be getting any worse it is just not improving. He denies any fever or cough. He does have pain when he moves his arm. He has no swelling his legs. He denies any orthopnea. He says he does have an allergy to iodine he causes him to faint but no airway compromise. He also has severe allergy to topical iodine causing blistering. 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 MD complaint: chest pain Onset (ago): day(s) () Duration: constant Related Data Home Medications Medication Instructions Recorded Confirmed Resmed Airsense 10 CPAP #1 ea 02/28/19 05/18/20 Previous Rx's Medication Instructions Recorded sertraline 25 mg tablet 25 mg PO DAILY #90 tab 07/09/19 acyclovir 800 mg tablet 800 mg PO DAILY #90 tab 07/07/20 lisinopril 20 1 tab PO DAILY #90 tab 07/07/20 mg-hydrochlorothiazide 25 mg tablet omeprazole 40 mg capsule,delayed See Rx Instructions .ROUTE 07/07/20 release .COMPLEX #90 capsule rivaroxaban 20 mg tablet 20 mg PO DAILY #90 tab 12/10/20 Allergies Allergy/AdvReac Type Severity Reaction Status Date / Time latex [LATEX] Allergy Mild Verified 02/12/21 09:18 iodine Allergy Unknown Verified 02/12/21 09:18 morphine Allergy Unknown Verified 02/12/21 09:18 shellfish derived Allergy Unknown Verified 02/12/21 09:18 Review of Systems Review of Systems ROS Unobtainable: All systems reviewed & are unremarkable except as noted in HPI and below Constitutional Constitutional: Denies chills, Denies fever(s), Denies lethargy and Denies weakness ENT Ears, Nose, Mouth, and Throat: Denies change in voice, Denies dizziness, Denies neck pain and Denies sore throat Cardiovascular Cardiovascular: Reports chest pain, Denies syncope, Denies irregular heart rhythm, Denies lightheadedness, Denies palpitations, Reports dyspnea on exertion and Denies orthopnea Respiratory Respiratory: Reports as per HPI, Denies chest congestion, Denies cough and Reports dyspnea on exertion Gastrointestinal Gastrointestinal: Denies abdominal pain, Denies change in bowel habits, Denies diarrhea, Denies nausea and Denies vomiting Musculoskeletal Musculoskeletal: Denies back pain and Denies neck pain Integumentary/Breasts Skin/Breast: Denies pruritus, Denies erythema, Denies rash and Denies wounds Neurologic Neurologic: Denies dizziness, Denies syncope and Denies weakness Endocrine Endocrine: Denies palpitations Patient History Medical History GERD (gastroesophageal reflux disease) Hypertension Insomnia, persistent Pulmonary embolism Snoring Surgical History History of Matthew fundoplication Family History Brother Heart attack Brother History of angioplasty Mother Diabetes mellitus Social History marital status: Smoking Status: Never smoker alcohol intake: current (occasionally) substance use type: does not use Smoking Status: Never smoker alcohol intake frequency: a few times a month Substance Use Type: does not use Exam Initial Vital Signs Initial Vital Signs: Vital Signs Temperature 97.8 F 02/12/21 09:14 Pulse Rate 63 02/12/21 09:14 Respiratory Rate 18 02/12/21 09:14 Blood Pressure 170/83 H 02/12/21 09:14 Pulse Oximetry 97 02/12/21 09:14 GENERAL: Alert pleasant 70-year-old male and in no acute distress. HEENT: Head atraumatic,EOMI, pupils reactive, face symmetric, moist mucous membranes CARDIOVASCULAR: Regular rate and rhythm without murmurs, rubs or gallops. Pain is reproducible with arm movement RESPIRATORY: Breath sounds equal bilaterally, no wheezes rales or rhonchi. ABDOMEN: Soft, nontender. Normoactive bowel sounds all 4 quadrants. No guarding or rebound. EXTREMITIES: Normal range of motion, no clubbing or edema. Neurovascularly intact NEUROLOGICAL: Alert and oriented x4.Normal gait and speech. Cranial nerves II through XII grossly intact. SKIN: Warm, dry, no laceration, no petechiae, no rashes or lesions. Course Orders Ordered: ED Orders 02/12/21 10:12 CT angio chest PE protocol Stat Discontinued Medications Diphenhydramine HCl (Diphenhydramine 50 Mg/Ml Vial) 25 mg IV NOW ONE Stop: 02/12/21 09:29 Last Admin: 02/12/21 10:15 Dose: 25 mg Documented by: KYREE Methylprednisolone (Methylprednisolone 125 Mg/2 Ml Vial) 125 mg IV NOW ONE Stop: 02/12/21 09:29 Last Admin: 02/12/21 10:15 Dose: 125 mg Documented by: KYREE Vital Signs Vital signs: Vital Signs - 8 hr 02/12/21 11:00 02/12/21 12:02 Pulse Rate 50 L 58 L Respiratory Rate 18 Blood Pressure 166/82 H 163/87 H Pulse Oximetry 98 99 MDM - Chest Pain Lab Data Attestation: I reviewed the patient's lab results. Result diagrams: 02/12/21 09:20 02/12/21 09:20 Labs: Lab Results 02/12/21 02/12/21 02/12/21 Range/Units 09:20 09:20 09:20 WBC 7.9 (4.5-11.0) X10^3/uL RBC 4.84 (4.5-5.9) X10^6/uL Hgb 15.0 (13.5-17.5) g/dL Hct 43.8 (41-53) % MCV 90.5 (80-100) fL MCH 31.1 (26-34) PG MCHC 34.4 (30-36) % RDW 13.2 (11.6-14.8) % Plt Count 219 (150-400) X10^3/uL Neut % (Auto) 58.7 (50-75) % Lymph % (Auto) 30.0 (25-40) % [place] % (Auto) 7.0 (3-14) % Eos % (Auto) 3.7 (2-4) % Baso % (Auto) 0.6 (0-2) % Neut # (Auto) 4600 (9670-1143) /uL Lymph # (Auto) 2400 (1313-3702) /uL [place] # (Auto) 600 (0-900) /uL Eos # (Auto) 300 (0-450) /uL Baso # (Auto) 0 (0-100) /uL D-Dimer < 200 (<230) ng/mL Sodium 138 (137-145) mmol/L Potassium 3.9 (3.4-5.1) mmol/L Chloride 104 (98-107) mmol/L Carbon Dioxide 29 (22-32) mmol/L BUN 34 H (9-20) mg/dL Creatinine 1.55 H (0.66-1.25) mg/dL Estimated GFR 44.4 L (>60) mL/min BUN/Creatinine Ratio 21.9 (6-22) Glucose 101 (80-110) mg/dL Calcium 9.8 (8.4-10.2) mg/dL Total Bilirubin 0.8 (0.2-1.3) mg/dL AST 27 (17-59) IU/L ALT 20 (<50) IU/L Alkaline Phosphatase 36 L (38-126) U/L Total Creatine Kinase 46 L (55-170) U/L CK-MB (CK-2) TNP CK-MB (CK-2) Rel Index TNP Troponin I < 0.012 (0.01-0.034) ng/mL NT-Pro-B Natriuret Pep 56 (<125) pg/mL Total Protein 7.8 (6.3-8.2) g/dL Albumin 4.5 (3.5-5.0) g/dL Globulin 3.3 (1.7-4.1) g/dL Albumin/Globulin Ratio 1.4 (1.0-2.8) Lipase 85 (23-300) U/L Imaging Data Chest x-ray: Radiologist's Impression: PROCEDURE: XR CHEST 1V INDICATIONS: left sided chest pain TECHNIQUE: One view of the chest was acquired. COMPARISON: [facility], , CHEST 1 VIEW, 02/14/2015, 12:48. FINDINGS: Surgical changes and devices: None. Lungs and pleura: Lungs are clear. No pleural effusions or pneumothorax. Mediastinum: Mediastinal contours appear normal. Heart size is normal. Bones and chest wall: No suspicious bony lesions. Overlying soft tissues appear unremarkable. IMPRESSION: Normal for age, source of current left-sided chest pain symptoms is not seen. Dictated by: Francisco Javed M.D. on 02/12/2021 at 10:06 CT scan - chest: Radiologist's Impression: PROCEDURE: CT ANGIO CHEST PE PROTOCOL INDICATIONS: left sided pain, hx of PE TECHNIQUE: After the administration of intravenous contrast, 2 mm thick sections acquired from the pulmonary apices to the posterior costophrenic angles. 3-dimensional maximum intensity projection (MIP) coronal and sagittal reformats were then acquired through the thorax. For radiation dose reduction, the following was used: automated exposure control, adjustment of mA and/or kV according to patient size. The patient was pre-medicated for possible iodine allergy. No adverse events. COMPARISON: None. FINDINGS: Image quality: Excellent. Pulmonary arteries: Pulmonary arteries are normal in size, and demonstrate no intraluminal filling defects to suggest central pulmonary embolism. Lungs and pleura: Lungs are clear. No pleural effusions or pneumothorax. Central and peripheral airways are patent. Mediastinum: Heart size is at the upper limits of normal, without pericardial effusion. Mild coronary calcification. No mediastinal or hilar adenopathy. Slightly tortuous and minimally atherosclerotic thoracic aortic arch. Thoracic aorta is normal in caliber and enhancement. The esophagus demonstrates distal circumferential wall thickening and a small hiatal hernia. Bones and chest wall: No suspicious bony lesions. Ribs and thoracic spine appear intact throughout. Thyroid gland is unremarkable. No axillary or supraclavicular adenopathy. Abdomen: Partially imaged noncalcified stones are present in the gallbladder. There are surgical clips in the left upper quadrant of the abdomen. Visualized upper abdominal solid organs appear otherwise normal in the early arterial phase of enhancement. IMPRESSION: 1. No pulmonary embolus. 2. Esophageal wall thickening and small hiatal hernia. Changes to this degree are most likely related to reflux. 3. Mild coronary artery calcification and heart size at the upper limits of normal. 4. Probable cholelithiasis. Dictated by: Holly Vasquez M.D. on 02/12/2021 at 11:07 ECG Data Attestation: I personally reviewed and interpreted this ECG as follows: Prior ECG tracings: available for review Interpretation: Normal sinus rhythm rate 60 p.r. interval 186 QRS [address] changes no T-wave inversions similar to previous EKG in 2018 MDM Narrative Medical decision making narrative: Patient remembers the actually lifted a tractor bucket around the same time that his symptoms started. His symptoms are actually pinpoint and worse with movement. Symptoms are most consistent with costochondritis. He has a negative D-dimer on Xarelto. I discussed with patient about CT for PE I cannot 100% rule out PE because he has previously had 1 but is anticoagulated and symptoms are most consistent with costochondritis. At this time he is requesting CT and is okay with iodine he has been pretreated. CT does not show any pulmonary embolism he had no reaction to iodine. Again at this time likely costochondritis Discharge Plan Departure Patient Disposition: Home Clinical Impression: Acute costochondritis Instructions: DI for Costochondritis Activity Restrictions/Additional Instructions: *You have been diagnosed with costochondritis *What to do: At this time it appears that you have rib sprain. This can take a few weeks to heal. You may try ice or heat to help with pain You do not have a pulmonary embolism blood work is overall reassuring. *Continue to take medications as directed Tylenol 1000 mg every 6 hours if needed for [id number]-wy-[id number] pain *Follow up with your primary care provider in 2-3 days *Return to ER if you should have increasing pain shortness of breath fever or any new, worsening or concerning symptoms Prescriptions: No Action sertraline 25 mg tablet 25 mg PO DAILY Qty: 90 RF: 3 omeprazole 40 mg capsule,delayed release(DR/EC) See Rx Instructions .ROUTE .COMPLEX Qty: 90 RF: 3 lisinopril-hydrochlorothiazide 20-25 mg tablet 1 tab PO DAILY Qty: 90 RF: 3 acyclovir 800 mg tablet 800 mg PO DAILY Qty: 90 RF: 3 Xarelto 20 mg tablet 20 mg PO DAILY Qty: 90 RF: 3 (DME) Resmed Airsense 10 CPAP Qty: 1 RF: 0 Referrals: Micha Sanford MD [Primary Care Provider] -
[2021-02-12 09:55] LABS: NT-proBNP (BNP-Adult 18+) 56 pg/mL (<125); Troponin I < 0.012 ng/mL (0.01-0.034)
--- NOTE | 2021-02-12 10:12 | DI.CT.S_ITS ---
PROCEDURE: CT ANGIO CHEST PE PROTOCOL INDICATIONS: left sided pain, hx of PE TECHNIQUE: After the administration of intravenous contrast, 2 mm thick sections acquired from the pulmonary apices to the posterior costophrenic angles. 3-dimensional maximum intensity projection (MIP) coronal and sagittal reformats were then acquired through the thorax. For radiation dose reduction, the following was used: automated exposure control, adjustment of mA and/or kV according to patient size. The patient was pre-medicated for possible iodine allergy. No adverse events. COMPARISON: None. FINDINGS: Image quality: Excellent. Pulmonary arteries: Pulmonary arteries are normal in size, and demonstrate no intraluminal filling defects to suggest central pulmonary embolism. Lungs and pleura: Lungs are clear. No pleural effusions or pneumothorax. Central and peripheral airways are patent. Mediastinum: Heart size is at the upper limits of normal, without pericardial effusion. Mild coronary calcification. No mediastinal or hilar adenopathy. Slightly tortuous and minimally atherosclerotic thoracic aortic arch. Thoracic aorta is normal in caliber and enhancement. The esophagus demonstrates distal circumferential wall thickening and a small hiatal hernia. Bones and chest wall: No suspicious bony lesions. Ribs and thoracic spine appear intact throughout. Thyroid gland is unremarkable. No axillary or supraclavicular adenopathy. Abdomen: Partially imaged noncalcified stones are present in the gallbladder. There are surgical clips in the left upper quadrant of the abdomen. Visualized upper abdominal solid organs appear otherwise normal in the early arterial phase of enhancement. IMPRESSION: 1. No pulmonary embolus. 2. Esophageal wall thickening and small hiatal hernia. Changes to this degree are most likely related to reflux. 3. Mild coronary artery calcification and heart size at the upper limits of normal. 4. Probable cholelithiasis. Dictated by: Holly Vasquez M.D. on 02/12/2021 at 11:07 Approved by: Holly Vasquez M.D. on 02/12/2021 at 11:14
[2021-02-12] MEDS: diphenhydrAMINE 50 MG/ML VIAL 25 MG IV (10:15)
[2021-02-12] MEDS: methylPREDNISolone 125 MG/2 ML VIAL IV (10:15)
== END 2021-02-12 12:04 | disposition home or self-care (01) ==
PROVIDERS: Emergency Provider Emergency Medicine; PCP Family Medicine
DX: M94.0 Chondrocostal junction syndrome [Tietze] (principal); R06.02 Shortness of breath; R07.9 Chest pain, unspecified
CPT/HCPCS: 36415; 71045; 71275; 80053; 82550; 83690; 83880; 84484; 85025; 85379; 93005; 96374; 96375; 99284; J1200; J2930

== ENCOUNTER → 2021-05-27 13:10 | Outpatient (CLI) | payer OTHER, MEDICARE, SELFPAY ==
[2021-05-27 14:02] LABS: Add Manual Diff / Slide Review NO; Basophils Absolute Auto 0 /uL (0-100); Basophils Percent Auto 0.7 % (0-2); Eosinophils Absolute Auto 100 /uL (0-450); Eosinophils Percent Auto 2.2 % (2-4); Hematocrit 40.7 % (41-53); Hemoglobin 14.1 g/dL (13.5-17.5); Lymphocytes Absolute Auto 2100 /uL (1100-4500); Lymphocytes Percent Auto 32.6 % (25-40); Mean Corpuscular HGB Conc 34.6 % (30-36); Mean Corpuscular Hemoglobin 30.8 PG (26-34); Monocytes Absolute Auto 500 /uL (0-900); Neutrophils Absolute Auto 3600 /uL (1500-7000); Neutrophils Percent Auto 56.5 % (50-75); Platelet Count 273 X10^3/uL (150-400); Red Blood Cell Count 4.58 X10^6/uL (4.5-5.9); White Blood Cell Count 6.4 X10^3/uL (4.5-11.0)
[2021-05-27 14:20] LABS: BUN Creatinine Ratio 20.3 (6-22); Blood Urea Nitrogen 31 mg/dL (9-20); Calcium 10.4 mg/dL (8.4-10.2); Carbon Dioxide 30 mmol/L (22-32); Chloride 98 mmol/L (98-107); Glucose 96 mg/dL (80-110); HEMOLYSIS < 15 (0-50); Iron 88 ug/dL (49-181); Potassium 4.4 mmol/L (3.4-5.1); Sodium 133 mmol/L (137-145)
[2021-05-27 14:32] LABS: Percent Iron Saturation 36 % (20-50); Total Iron Binding Capacity 242 ug/dL (261-462); Transferrin 204 mg/dL (206-381)
== END ==
PROVIDERS: Physician Assistant; PCP Family Medicine; Referring Provider Family Medicine; Visit Provider Family Medicine
DX: I10 Essential (primary) hypertension (principal); K62.5 Hemorrhage of anus and rectum; R42 Dizziness and giddiness; R53.83 Other fatigue; R79.89 Other specified abnormal findings of blood chemistry
CPT/HCPCS: 36415; 80048; 83540; 83550; 85025